=== PATIENT | female | born 1950 | race African-American/Black ===

== ENCOUNTER 2017-03-31 11:28 | Emergency (ER) | payer OTHER, MEDICARE, MEDICAID ==
[~2017-03-31] VITALS: Ht 157.5 cm; Wt 80.0 kg
[~2017-03-31 11:28] MED LIST: COMBAER INH; GLIP5 PO; GLUCTAB PO; GUAI1TAB3 PO; HYDR-3580 PO; JANU100T PO; SOMA350T PO
[2017-03-31 11:38] VITALS: BP_SYST 215; BP_SYST 216; BP_DIAS 100; PULSE 69; RESP 16; TEMP 98.7; O2SAT 97
[2017-03-31] MEDS ORDERED: IBUPROFEN 600 MG TAB PO ONE (12:00)
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
[2017-03-31] MEDS ORDERED: ROBA500T PO (13:28)
[2017-03-31 13:42] VITALS: RESP 16
--- NOTE | 2017-03-31 14:17 | EKG ---
Date Performed: 03/31/2017 Time Performed: 11:42:07 PTAGE: 66 years EKG: Sinus rhythm NONSPECIFIC T-WAVE ABNORMALITY BORDERLINE ECG PREVIOUS TRACING : 07/20/2012 17.38 DOCTOR: Agustin Camargo Interpretating Date/Time 03/31/2017 14:13:51
== END 2017-03-31 13:44 | disposition home or self-care (01) ==
LOC: NEPD 11:28
DX: S20.211A Contusion of right front wall of thorax, initial encounter (principal); M25.561 Pain in right knee; V43.52XA Car driver injured in collision with other type car in traffic accident, initial encounter; Y92.481 Parking lot as the place of occurrence of the external cause
CPT/HCPCS: 71020; 73564; 93005; 99284

== ENCOUNTER 2017-11-09 15:49 | Inpatient (IN) | END 2017-11-14 15:13 | DRG 304 | DX: I16.1 Hypertensive emergency (principal); N17.0 Acute kidney failure with tubular necrosis; N18.4 Chronic kidney disease, stage 4 (severe); E11.22 Type 2 diabetes mellitus with diabetic chronic kidney disease; I50.9 Heart failure, unspecified; I13.0 Hypertensive heart and chronic kidney disease with heart failure and stage 1 through stage 4 chronic kidney disease, or unspecified chronic kidney disease; E78.5 Hyperlipidemia, unspecified; J44.9 Chronic obstructive pulmonary disease, unspecified; I25.10 Atherosclerotic heart disease of native coronary artery without angina pectoris; G89.29 Other chronic pain; M54.9 Dorsalgia, unspecified; M15.9 Polyosteoarthritis, unspecified; F40.240 Claustrophobia; F17.210 Nicotine dependence, cigarettes, uncomplicated; Z79.84 Long term (current) use of oral hypoglycemic drugs; Z88.6 Allergy status to analgesic agent; Z95.0 Presence of cardiac pacemaker; Z95.5 Presence of coronary angioplasty implant and graft ==